=== PATIENT | male | born 1950 | race Caucasian/White ===

== ENCOUNTER 2025-02-16 22:27 | Emergency (ER) | payer OTHER ==
[~2025-02-16] VITALS: Ht 180.3 cm; Wt 68.3 kg
[2025-02-16 22:30] VITALS: BP 130/75; PULSE 75; RESP 18; TEMP 98.2; O2SAT 100
== END 2025-02-17 00:55 | disposition left against medical advice (07) ==
LOC: ER 22:28
DX: S81.812A Laceration without foreign body, left lower leg, initial encounter (principal); Z53.21 Procedure and treatment not carried out due to patient leaving prior to being seen by health care provider; X58.XXXA Exposure to other specified factors, initial encounter; Y93.89 Activity, other specified; Y92.89 Other specified places as the place of occurrence of the external cause; Y99.8 Other external cause status
CPT/HCPCS: A6446; A6449